=== PATIENT | female | born 1950 | race Caucasian/White ===

== ENCOUNTER 2020-10-18 08:49 | Inpatient (IN) ==
[~2020-10-18 08:49] MED LIST: Acetaminophen IV 1,000 MG/100 ML BAG IVPB ONE
[2020-10-18] MEDS ORDERED: CeFAZolin Syr 2,000MG/20 ML 2,000 MG/20 ML SYRINGE IVPB ONE (09:10)
[2020-10-18] MEDS ORDERED: MetroNIDAZOLE 500 MG/100 ML 500 MG/100 ML BAG IVPB ONE (09:11)
[2020-10-18] MEDS ORDERED: Ringers Solution, Lactated 1,000 ML IVC SCH ×2 (09:15→15:35)
[2020-10-18] MEDS ORDERED: *HR* FentaNYL (PF) 100 MCG/2 ML VIAL ONE (09:33)
[2020-10-18] MEDS ORDERED: *HR* Propofol 200 MG/20 ML VIAL IVP ONE (09:33)
[2020-10-18] MEDS ORDERED: *HR* Midazolam HCl 2 MG/2 ML VIAL ONE (09:33)
[2020-10-18] MEDS ORDERED: Lidocaine -MPF 2% 2 ML VIAL ONE (09:34)
[2020-10-18] MEDS ORDERED: Ondansetron 4 MG/2 ML VIAL ONE (09:34)
[2020-10-18] MEDS ORDERED: *HR* Rocuronium Bromide 50 MG/5 ML VIAL ONE ×2 (09:34→11:42)
[2020-10-18] MEDS ORDERED: Lidocaine HCL 4 ML Topical Solution (Laryng-O-Jet Kit Sterile Pak) TP ONE (09:34)
[2020-10-18] MEDS ORDERED: *HR* HYDROmorphone PF 0.5 MG/0.5 ML SYRINGE IVP PRN (09:52)
[2020-10-18] MEDS ORDERED: Ondansetron 4 MG/2 ML VIAL IVP PRN ×2 (09:52→15:35)
[2020-10-18] MEDS ORDERED: Bupivacaine/EPI 1:200k 0.25% 50 ML VIAL ONE (10:16)
[2020-10-18] MEDS ORDERED: EPHEDrine 50 MG/ML VIAL ONE (10:52)
[2020-10-18] MEDS ORDERED: *HR* HYDROMORPHONE 2 MG/ML VIAL ONE ×2 (11:52→13:59)
[2020-10-18] MEDS ORDERED: Sugammadex Sodium 200 MG/2 ML VIAL IV ONE (12:03)
[2020-10-18] MEDS ORDERED: Ketorolac 30 MG/ML VIAL ONE (12:04)
[2020-10-18] MEDS ORDERED: *HR* HYDROcodone/Acet 5/325 mg TABLET PO PRN (15:35)
[2020-10-18] MEDS ORDERED: Naloxone 0.4 MG/ML INJ IVP PRN (15:35)
[2020-10-18] MEDS ORDERED: Ibuprofen 600 MG TABLET PO PRN (15:35)
[2020-10-18] MEDS: *HR* Metformin 500 MG TABLET PO SCH (20:20)
[2020-10-19 00:40] VITALS: O2SAT 96
[2020-10-19 08:13] VITALS: BP 147/82; TEMP 97.8
[2020-10-19] MEDS ORDERED: Aspirin Enteric Coated 81 MG Tablet PO SCH (09:00)
[2020-10-19] MEDS ORDERED: amLODIPine 5 MG TABLET PO SCH (09:00)
[2020-10-19] MEDS: *HR* Metformin 500 MG TABLET PO SCH (09:28)
[2020-10-19 10:26] VITALS: PULSE 88
== END 2020-10-19 11:15 | disposition home or self-care (01) | DRG 743 ==
LOC: SAMDAY 08:49 → 1NENUOBS 15:18
PROVIDERS: ADMIT Obstetrics & Gynecology; ATTEND Obstetrics & Gynecology